=== PATIENT | female | born 1960 | race Caucasian/White ===

== ENCOUNTER 2016-11-24 09:44 | Emergency (ER) | payer SELFPAY ==
[~2016-11-24] VITALS: Ht 172.7 cm; Wt 78.6 kg
[2016-11-24] MEDS ORDERED: ARTHRITIS PO (09:58)
[2016-11-24] MEDS ORDERED: LORazepam 2 MG TABLET PO ONE (10:00)
[2016-11-24 10:13] VITALS: BP 147/88
== END 2016-11-24 10:43 | disposition home or self-care (01) ==
LOC: EMS 09:49
DX: F43.22 Adjustment disorder with anxiety (principal)
CPT/HCPCS: 99284